=== PATIENT | female | born 1980 | race Caucasian/White ===

== ENCOUNTER 2021-10-28 01:43 | Emergency (ER) | payer OTHER, SELFPAY ==
[2021-10-28 01:52] VITALS: BP 141/99; PULSE 110; RESP 18; TEMP 36.7; O2SAT 97; BMI 34.2
== END 2021-10-28 03:48 | disposition left against medical advice (07) ==
PROVIDERS: Emergency Provider Emergency Medicine
DX: S05.8X1A Other injuries of right eye and orbit, initial encounter (principal); X58.XXXA Exposure to other specified factors, initial encounter; Y93.9 Activity, unspecified; Y92.9 Unspecified place or not applicable; Y99.9 Unspecified external cause status
CPT/HCPCS: 99281